=== PATIENT | male | born 1990 | race American Indian/Alaskan Native ===

== ENCOUNTER 2016-03-23 11:09 | Emergency (ER) | payer OTHER ==
--- NOTE | 2016-03-23 15:35 | XRay Report ---
LEFT FOREARM RADIOGRAPHS INDICATION: Arm pain. COMPARISON: None similar. FINDINGS: AP and lateral left forearm radiographs demonstrate normal bones and soft tissues. Included elbow and wrist articulations also appear grossly within normal limits. CONCLUSION: Normal exam. Thank you for the opportunity to participate in this patient's care.
--- NOTE | 2016-03-23 15:37 | XRay Report ---
RIGHT KNEE RADIOGRAPHS INDICATION: Knee pain. COMPARISON: None similar at this institution. FINDINGS: AP and lateral right knee radiographs demonstrate normal bony articulation and appearance. No definite large suprapatellar effusion. CONCLUSION: Normal right knee radiographs. Thank you for the opportunity to participate in this patient's care.
[2016-03-23] MEDS ORDERED: TORADOL IM ONE (15:46)
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
[2016-03-23 16:08] VITALS: BP 138/60
== END 2016-03-23 17:00 | disposition home or self-care (01) ==
LOC: ED 11:09
DX: M25.561 Pain in right knee (principal); T14.8 Other injury of unspecified body region; M79.622 Pain in left upper arm; V89.2XXA Person injured in unspecified motor-vehicle accident, traffic, initial encounter; Y93.89 Activity, other specified; Y92.89 Other specified places as the place of occurrence of the external cause; Y99.8 Other external cause status; F17.200 Nicotine dependence, unspecified, uncomplicated
CPT/HCPCS: 73090; 73560; 96372; 99283; J1885